=== PATIENT | male | born 1945 | race Caucasian/White ===

== ENCOUNTER → 2018-08-12 | Outpatient (CLI) | payer OTHER, MEDICARE ==
[~2018-08-12] MED LIST: GADOBUTROL 10 ML VIAL IVP ONE
== END ==
LOC: FIMAGING 09:18
PROVIDERS: ATTEND Specialist
DX: C61 Malignant neoplasm of prostate (principal)
CPT/HCPCS: 74183; 78306; A9503; A9585; 82565-PO

== ENCOUNTER → 2018-08-14 | Outpatient (CLI) | payer OTHER, MEDICARE | LOC: FIMAGING 11:40 | PROVIDERS: ATTEND Specialist | DX: C61 Malignant neoplasm of prostate (principal) | CPT/HCPCS: 72197; A9585 ==